=== PATIENT | female | born 1995 | race Caucasian/White ===

== ENCOUNTER → 2017-03-25 | Outpatient (CLI) | payer BC ==
[2017-03-25 12:07] LABS: ABSOLUTE EOSINOPHILS # (AUTO) 0.1 10^3/uL (0.0-0.6); ABSOLUTE LYMPHOCYTES (AUTO) 1.5 10^3/uL (0.5-4.7); ABSOLUTE MONOCYTES (AUTO) 0.2 10^3/uL (0.1-1.4); ABSOLUTE NEUT (AUTO) 2.6 10^3/uL (1.7-8.2); BASOPHILS % (AUTO) 0.8 % (0-2); EOSINOPHILS % (AUTO) 2.6 % (0-6); HEMATOCRIT 39.3 % (36.0-47.0); HEMOGLOBIN 13.3 g/dL (12.0-15.5); HGB HCT DIFFERENCE 0.6; LYMPHOCYTES % (AUTO) 33.6 % (13-45); MEAN CORPUSCULAR HEMOGLOBIN 29.4 pg (27.0-33.4); MEAN CORPUSCULAR VOLUME 87 fl (80-97); MONOCYTES % (AUTO) 4.3 % (3-13); RED BLOOD COUNT 4.53 10^6/uL (3.72-5.28); RED CELL DISTRIBUTION WIDTH 12.1 % (11.5-14.0); SEGMENTED NEUTROPHILS % (AUTO) 58.7 % (42-78); WHITE BLOOD COUNT 4.4 10^3/uL (4.0-10.5)
[2017-03-25 12:31] LABS: ALANINE AMINOTRANSFERASE 25 U/L (9-52); ALBUMIN 4.5 g/dL (3.5-5.0); ALKALINE PHOSPHATASE 54 U/L (38-126); ANION GAP 13 (5-19); ASPARTATE AMINO TRANSFERASE 17 U/L (14-36); BILIRUBIN,DIRECT 0.4 mg/dL (0.0-0.4); BILIRUBIN,TOTAL 0.5 mg/dL (0.2-1.3); BLOOD UREA NITROGEN 11 mg/dL (7-20); CALCIUM 9.9 mg/dL (8.4-10.2); CARBON DIOXIDE 23 mmol/L (22-30); CHLORIDE 107 mmol/L (98-107); CHOLESTEROL 160.52 mg/dL (0-200); Direct HDL 38 mg/dL (>40); GLUCOSE 85 mg/dL (75-110); POTASSIUM 4.3 mmol/L (3.6-5.0); SODIUM 143.2 mmol/L (137-145); TOTAL PROTEIN 7.3 g/dL (6.3-8.2); TRIGLYCERIDES 85 mg/dL (<150)
[2017-03-25 12:41] LABS: DIRECT LDL 93 mg/dL (<100)
== END ==
LOC: OD 11:04
PROVIDERS: ATTEND Psychiatry & Neurology Psychiatry
DX: F39 Unspecified mood [affective] disorder (principal); F41.1 Generalized anxiety disorder; F90.2 Attention-deficit hyperactivity disorder, combined type
CPT/HCPCS: 36415; 80053; 80061; 84443; 85025

== ENCOUNTER 2017-10-26 03:14 | Emergency (ER) | payer BC ==
[2017-10-26] MEDS ORDERED: ONDANSETRON 4 MG TAB.RAPDIS PO ONE (04:15)
[2017-10-26] MEDS ORDERED: HYDROCODONE/ACETAMINOPHEN 5-325 MG TABLET PO ONE (04:15)
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
[2017-10-26] MEDS ORDERED: HYDROCODONE/ACETAMINOPHEN 5-325 MG (6 TAB/ER DISP) PO PRN (05:55)
[2017-10-26 06:03] VITALS: BP 120/60
== END 2017-10-26 06:00 | disposition home or self-care (01) ==
LOC: ER 03:14
DX: S00.83XA Contusion of other part of head, initial encounter (principal); S10.93XA Contusion of unspecified part of neck, initial encounter; S06.0X9A Concussion with loss of consciousness of unspecified duration, initial encounter; R51 Headache; M54.2 Cervicalgia; Y04.0XXA Assault by unarmed brawl or fight, initial encounter
CPT/HCPCS: 99284; 70450; 70486; 72125; S0119

== ENCOUNTER → 2018-02-04 | Outpatient (CLI) | payer BC ==
[2018-02-04 13:29] LABS: ABSOLUTE EOSINOPHILS # (AUTO) 0.1 10^3/uL (0.0-0.6); ABSOLUTE LYMPHOCYTES (AUTO) 1.4 10^3/uL (0.5-4.7); ABSOLUTE MONOCYTES (AUTO) 0.3 10^3/uL (0.1-1.4); ABSOLUTE NEUT (AUTO) 2.2 10^3/uL (1.7-8.2); BASOPHILS % (AUTO) 0.6 % (0-2); EOSINOPHILS % (AUTO) 2.6 % (0-6); HEMATOCRIT 38.6 % (36.0-47.0); HEMOGLOBIN 13.1 g/dL (12.0-15.5); MEAN CORPUSCULAR HEMOGLOBIN 29.3 pg (27.0-33.4); MEAN CORPUSCULAR VOLUME 86 fl (80-97); MONOCYTES % (AUTO) 6.7 % (3-13); PLATELET COUNT 239 10^3/uL (150-450); RED BLOOD COUNT 4.47 10^6/uL (3.72-5.28); RED CELL DISTRIBUTION WIDTH 12.1 % (11.5-14.0); SEGMENTED NEUTROPHILS % (AUTO) 55.1 % (42-78); TOTAL CELLS COUNTED % (AUTO) 100 %; WHITE BLOOD COUNT 3.9 10^3/uL (4.0-10.5)
[2018-02-04 13:53] LABS: ALANINE AMINOTRANSFERASE 21 U/L (9-52); ALBUMIN 4.3 g/dL (3.5-5.0); ALKALINE PHOSPHATASE 48 U/L (38-126); ANION GAP 15 (5-19); ASPARTATE AMINO TRANSFERASE 17 U/L (14-36); BILIRUBIN,DIRECT 0.3 mg/dL (0.0-0.4); BILIRUBIN,TOTAL 0.6 mg/dL (0.2-1.3); BLOOD UREA NITROGEN 12 mg/dL (7-20); CALCIUM 9.4 mg/dL (8.4-10.2); CARBON DIOXIDE 22 mmol/L (22-30); CHLORIDE 108 mmol/L (98-107); GLUCOSE 76 mg/dL (75-110); POTASSIUM 4.3 mmol/L (3.6-5.0); SODIUM 144.7 mmol/L (137-145); TOTAL PROTEIN 7.2 g/dL (6.3-8.2)
[2018-02-04 14:11] LABS: FREE T4 (FREE THYROXINE) 1.35 ng/dL (0.78-2.19)
[2018-02-04 14:25] LABS: THYROID STIMULATING HORMONE 1.73 uIU/mL (0.47-4.68)
== END ==
LOC: OD 12:03
PROVIDERS: ATTEND Internal Medicine
DX: Z00.00 Encounter for general adult medical examination without abnormal findings (principal)
CPT/HCPCS: 36415; 80053; 84439; 84443; 85025

== ENCOUNTER 2018-05-20 13:44 | Emergency (ER) | payer BC ==
[2018-05-20 14:12] VITALS: BP 120/69
[2018-05-20] MEDS ORDERED: ONDANSETRON 4 MG TAB.RAPDIS PO ONE (14:20)
[2018-05-20] MEDS ORDERED: ACETAMINOPHEN 325 MG TABLET PO ONE (14:20)
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
== END 2018-05-20 14:37 | disposition home or self-care (01) ==
LOC: ER 13:44
DX: S00.83XA Contusion of other part of head, initial encounter (principal); R51 Headache; W22.8XXA Striking against or struck by other objects, initial encounter; Y93.01 Activity, walking, marching and hiking; R11.2 Nausea with vomiting, unspecified; R42 Dizziness and giddiness
CPT/HCPCS: 99283; S0119

== ENCOUNTER 2018-09-24 18:40 | Emergency (ER) | payer BC ==
[2018-09-24 18:46] VITALS: BP 126/76
[2018-09-24] MEDS ORDERED: DEXAMETHASONE SOD PHOS INJ 10 MG/1 ML VIAL IM ONE (21:11)
[2018-09-24] MEDS ORDERED: IBUPROFEN 600 MG TABLET PO ONE (21:12)
--- NOTE | 2018-09-24 21:12 | ER Document Report ---
ED Medical Screen (RME) - General Chief Complaint: Neck Swelling Stated Complaint: DIFFICULTY BREATHING Time Seen by Provider: 09/24/18 21:02 Notes: Patient is a 23-year-old female that comes emergency department for chief complaint of pain along her neck, sides and front, she states the pain is worsening and it feels hard to swallow in addition to feeling hard to turn her head. She also reports sore throat, worsening throughout the day. She recently got over a "sinus infection", was not on antibiotics. She denies fever, nausea, vomiting, headache. She is here with her mother. Past medical history anxiety, medicated. TRAVEL OUTSIDE OF THE [place] IN LAST 30 DAYS: No - Related Data Allergies/Adverse Reactions: No Known Allergies Allergy (Verified 09/24/18 18:43) Past Medical History - Social History Chew tobacco use (# tins/day): No Frequency of alcohol use: None Drug Abuse: None - Past Medical History Cardiac Medical History: Denies: Hx Coronary Artery Disease, Hx Heart Attack, Hx Hypertension Pulmonary Medical History: Denies: Hx Asthma, Hx Bronchitis, Hx COPD, Hx Pneumonia Neurological Medical History: Reports: Hx Seizures - x1 r/t medication. Denies: Hx Cerebrovascular Accident Endocrine Medical History: Reports: Hx Hypothyroidism Renal/ Medical History: Denies: Hx Peritoneal Dialysis GI Medical History: Reports: Hx Gastroesophageal Reflux Disease Musculoskeltal Medical History: Denies Hx Arthritis Psychiatric Medical History: Reports: Hx Anxiety, Hx Depression - Immunizations Immunizations up to date: Yes Hx Diphtheria, Pertussis, Tetanus Vaccination: Yes Physical Exam - Vital signs Vitals: Temp Pulse Resp BP Pulse Ox 99 F 110 H 16 126/76 H 98 09/24/18 18:45 09/24/18 18:45 09/24/18 18:45 09/24/18 18:45 09/24/18 18:45 - General General appearance: Appears well In distress: None - HEENT Neck: Anterior cervical chain - Bilateral anterior cervical adenopathy, worse on the right, no nuchal rigidity, no submandibular or submental swelling.. No: Posterior cervical chain Course - Vital Signs Vital signs: Temp Pulse Resp BP Pulse Ox 99 F 110 H 16 126/76 H 98 09/24/18 18:45 09/24/18 18:45 09/24/18 18:45 09/24/18 18:45 09/24/18 18:45
--- NOTE | 2018-09-24 21:43 | ER Document Report ---
HPI - HPI Time Seen by Provider: 09/24/18 21:02 Pain Level: 5 Context: Patient is a 23-year-old female that comes emergency department for chief complaint of pain along her neck, sides and front, she states the pain is worsening and it feels hard to swallow in addition to feeling hard to turn her head. She also reports sore throat, worsening throughout the day. She recently got over a "sinus infection", was not on antibiotics. She denies fever, nausea, vomiting, headache. She is here with her mother. Past medical history anxiety, medicated. - REPRODUCTIVE Reproductive: DENIES: : - DERM Skin Color: Normal, [place] Past Medical History - General Information source: Patient - Social History Smoking Status: Former Smoker Chew tobacco use (# tins/day): No Frequency of alcohol use: None Drug Abuse: None Lives with: Family Family History: CAD, DM, Hyperlipidemia, Hypertension, Malignancy, Thyroid Disfunction, Other - polycythemia Patient has suicidal ideation: No Patient has homicidal ideation: No - Past Medical History Cardiac Medical History: Denies: Hx Coronary Artery Disease, Hx Heart Attack, Hx Hypertension Pulmonary Medical History: Denies: Hx Asthma, Hx Bronchitis, Hx COPD, Hx Pneumonia Neurological Medical History: Reports: Hx Seizures - x1 r/t medication. Denies: Hx Cerebrovascular Accident Endocrine Medical History: Reports: Hx Hypothyroidism Renal/ Medical History: Denies: Hx Peritoneal Dialysis GI Medical History: Reports: Hx Gastroesophageal Reflux Disease Musculoskeletal Medical History: Denies Hx Arthritis Psychiatric Medical History: Reports: Hx Anxiety, Hx Depression - Immunizations Immunizations up to date: Yes Hx Diphtheria, Pertussis, Tetanus Vaccination: Yes Vertical Provider Document - CONSTITUTIONAL General Appearance: WD/WN, No Apparent Distress - INFECTION CONTROL TRAVEL OUTSIDE OF THE [place] IN LAST 30 DAYS: No - HEENT HEENT: Atraumatic, Normocephalic. negative: Normal ENT Exam - Mild erythema of the posterior pharynx but no tonsillar exudates, swelling, uvular edema, or other concerning findings noted. Ear exam unremarkable. - NECK Neck: Other - Mild anterior cervical adenopathy, worse on the right. No submandibular or facial swelling - RESPIRATORY Respiratory: Breath Sounds Normal, No Respiratory Distress - CARDIOVASCULAR Cardiovascular: Regular Rate, Regular Rhythm. negative: Tachycardia - GI/ABDOMEN Gastrointestinal: Abdomen Soft, Abdomen Non-Tender - BACK Back: Normal Inspection - NEURO Level of Consciousness: Awake, Alert, Appropriate Motor/Sensory: No Motor Deficit, No Sensory Deficit - DERM Integumentary: Warm, Dry, No Rash Course - Re-evaluation Re-evalutation: On my evaluation patient has anterior cervical adenopathy which is mild, slightly worse on the right. This is specifically the location of patient's pain however. She has no nuchal rigidity, normal range of motion of the neck, minimal erythema of the posterior pharynx, unremarkable sinuses, lung exam, and ENT exam otherwise. Initially patient didn't want strep throat testing, this was discussed, after discussion she decided to get it and asked to leave afterwards. Treated with dexamethasone. Strep test is negative. No other concerning abnormalities noted, will treat for lymphadenopathy. Patient is not tachycardic on my exam. Discussed expectations, follow-up, return precautions. Patient and mother state understanding and agreement. - Vital Signs Vital signs: Temp Pulse Resp BP Pulse Ox 99 F 110 H 16 126/76 H 98 09/24/18 18:45 09/24/18 18:45 09/24/18 18:45 09/24/18 18:45 09/24/18 18:45 Discharge - Discharge Clinical Impression: Anterior cervical lymphadenopathy Pharyngitis Qualifiers: Pharyngitis/tonsillitis etiology: unspecified etiology Qualified Code(s): J02.9 - Acute pharyngitis, unspecified Condition: Stable Disposition: HOME, SELF-CARE Additional Instructions: Your strep test is negative. Your evaluation suggest this is either viral or allergic in nature. I recommend the Rayna daily, you have been treated with dexamethasone, you can take [id number] medications as well for your symptoms. Symptoms should resolve with time. Drink plenty of fluids and rest. Return if you worsen including fever, increased swelling, difficulty swallowing or breathing, or any other concerning or worsening symptoms. Prescriptions: Fexofenadine HCl [Rayna Allergy] 180 mg PO DAILY #30 tablet Forms: Return to Work
== END 2018-09-24 21:50 | disposition home or self-care (01) ==
LOC: ER 18:40
DX: J02.9 Acute pharyngitis, unspecified (principal); R59.9 Enlarged lymph nodes, unspecified; M54.2 Cervicalgia; R13.10 Dysphagia, unspecified; Z87.891 Personal history of nicotine dependence
CPT/HCPCS: 99283; 96372; 87070; 87880; J1100

== ENCOUNTER 2018-10-02 21:00 | Emergency (ER) | payer BC ==
--- NOTE | 2018-10-02 23:50 | ER Document Report ---
ED General - General Chief Complaint: Wound Infection Stated Complaint: ABSCESS Time Seen by Provider: 10/02/18 23:36 TRAVEL OUTSIDE OF THE [place] IN LAST 30 DAYS: No - HPI Notes: Patient is a 23-year-old female that presents to the emergency department for chief complaint of right foot abscess. Patient noticed a painful area on the bottom of her right foot about a week ago. Her primary care doctor put her on Keflex 4 days ago. She states the area is becoming increasingly painful and now looks white. She has had abscesses in the past. She denies any injury to this area or puncture wound. She denies wearing any shoes which could have caused an abrasion. She reports recent viral infection with low-grade fevers and lymphadenopathy which she states is improving. Past Medical History: Negative Past Surgical History: Viewed in chart Social History: Denies drugs alcohol and tobacco Family History: Reviewed and noncontributory for presenting illness Allergies: Reviewed, see documented allergy list. REVIEW OF SYSTEMS: CONSTITUTIONAL : No fever No chills No diaphoresis recent illness EENT: No vision changes No congestion No sore throat CARDIOVASCULAR: No chest pain No palpitations RESPIRATORY: No shortness of breath No cough No difficulty breathing GASTROINTESTINAL: No abdominal pain No nausea No vomiting No diarrhea GENITOURINARY: No dysuria No hematuria No difficulty urinating MUSCULOSKELETAL: No back pain No leg pain No arm pain SKIN: No rashes lesions LYMPHATIC: No swollen, enlarged glands. NEUROLOGICAL: No lightheadedness No headache No weakness No paresthesias PSYCHIATRIC: No anxiety No depression PHYSICAL EXAMINATION: Vital signs reviewed, nursing noted reviewed. GENERAL: Well-appearing, well-nourished and in no acute distress. HEAD: Atraumatic, normocephalic. EYES: Eyes appear normal, extraocular movements intact, sclera anicteric, conjunctiva are normal. ENT: nares patent, oropharynx clear without exudates. Moist mucous membranes. NECK: Normal range of motion, supple without lymphadenopathy LUNGS: Breath sounds clear to auscultation bilaterally and equal. No wheezes rales or rhonchi. HEART: Regular rate and rhythm without murmurs ABDOMEN: Soft, nontender, normoactive bowel sounds. No rebound, guarding, or rigidity. No masses appreciated. EXTREMITIES: Nontender, good range of motion, no pitting or edema. NEUROLOGICAL: No focal neurological deficits. Moves all extremities spontaneously Motor and sensory grossly intact on exam. PSYCH: Normal mood, normal affect. SKIN: Warm, Dry, normal turgor. 0.5 x 0.5 cm abscess to plantar right foot with mild surrounding erythema - Related Data Allergies/Adverse Reactions: No Known Allergies Allergy (Verified 09/24/18 18:43) Past Medical History - Social History Smoking Status: Never Smoker Family History: CAD, DM, Hyperlipidemia, Hypertension, Malignancy, Thyroid Disfunction, Other - polycythemia - Past Medical History Cardiac Medical History: Denies: Hx Coronary Artery Disease, Hx Heart Attack, Hx Hypertension Pulmonary Medical History: Denies: Hx Asthma, Hx Bronchitis, Hx COPD, Hx Pneumonia Neurological Medical History: Reports: Hx Seizures - x1 r/t medication. Denies: Hx Cerebrovascular Accident Endocrine Medical History: Reports: Hx Hypothyroidism Renal/ Medical History: Denies: Hx Peritoneal Dialysis GI Medical History: Reports: Hx Gastroesophageal Reflux Disease Musculoskeletal Medical History: Denies Hx Arthritis Psychiatric Medical History: Reports: Hx Anxiety, Hx Depression - Immunizations Immunizations up to date: Yes Hx Diphtheria, Pertussis, Tetanus Vaccination: Yes Physical Exam - Vital signs Vitals: Temp Pulse Resp BP Pulse Ox 99.0 F 107 H 18 121/77 97 10/02/18 21:19 10/02/18 21:19 10/02/18 21:19 10/02/18 21:19 10/02/18 21:19 Course - Re-evaluation Re-evalutation: 10/02/18 23:48 Vitals reviewed. Nursing notes reviewed. Patient had a small abscess on her plantar right foot which was drained with an 18-gauge needle. She tolerated this well. She will continue taking the Keflex and will be started on Bactrim. She will follow with her primary care doctor in the next few days. The area was very superficial and I do not suspect deeper infection including osteomyelitis. - Vital Signs Vital signs: Temp Pulse Resp BP Pulse Ox 99.0 F 107 H 18 121/77 97 10/02/18 21:19 10/02/18 21:19 10/02/18 21:19 10/02/18 21:19 10/02/18 21:19 Procedures - Incision and Drainage Right Foot Time completed: 23:49 Type: Simple Incision Method: Incision made with needle Notes: 10/02/18 23:50 Area cleaned with multiple alcohol preps. Needle aspiration performed with 18- gauge needle. Trace purulent discharge obtained. Abscess was expressed with moderate bleeding. Band-Aid placed over the area. Patient tolerated well with no immediate complications Discharge - Discharge Clinical Impression: Foot abscess, right Condition: Stable Disposition: HOME, SELF-CARE Instructions: Abscess ([facility]), Post Incision and Drainage Additional Instructions: Please return to the emergency department if you have any worsening, or concern of your symptoms. Please return to the emergency department if you develop chest pain, difficulty breathing, severe abdominal pain, or ongoing vomiting. Please follow-up with your primary care physician in 2-3 days and any other recommended physicians. If prescribed, take all medications as directed. If you have any questions or concerns do not hesitate to return the emergency department for evaluation. Keep area clean by washing with antibacterial soap 2-3 times a day Prescriptions: Sulfamethoxazole/Trimethoprim [Bactrim Ds Tablet] 1 each PO BID #14 tablet
[2018-10-03 00:09] VITALS: BP 119/61
== END 2018-10-03 00:10 | disposition home or self-care (01) ==
LOC: ER 21:00
DX: L02.91 Cutaneous abscess, unspecified (principal); L02.611 Cutaneous abscess of right foot
CPT/HCPCS: 99282

== ENCOUNTER → 2019-05-17 | Outpatient (CLI) | payer BC | LOC: OD 11:57 | PROVIDERS: ATTEND Internal Medicine | DX: R63.4 Abnormal weight loss (principal) ==